=== PATIENT | female | born 1960 | race Caucasian/White ===

== ENCOUNTER 2017-12-07 07:57 | Outpatient (CLI) | payer OTHER | END 2017-12-07 07:58 | disposition home or self-care (01) | LOC: BICMAMMO 07:57 | PROVIDERS: ATTEND Family Medicine | DX: Z12.31 Encounter for screening mammogram for malignant neoplasm of breast (principal); R92.1 Mammographic calcification found on diagnostic imaging of breast; Z80.3 Family history of malignant neoplasm of breast; Z85.3 Personal history of malignant neoplasm of breast | CPT/HCPCS: 77063; 77067 ==

== ENCOUNTER 2018-07-14 08:55 | Outpatient (CLI) | payer OTHER ==
--- NOTE | 2018-07-14 09:56 | RAD ---
TWO VIEW CHEST: COMPARISON: 04/09/2004. INDICATION: Cough, short of breath. FINDINGS: The lungs are clear. Cardiomediastinal silhouette is of normal size. Metallic clips are seen at the left axilla. No significant interval change. IMPRESSION: Stable chest, without focal consolidation. POS: [facility]
== END 2018-07-14 08:56 | disposition home or self-care (01) ==
LOC: SCSRAD 08:55
PROVIDERS: ATTEND Family Medicine
DX: R05 Cough (principal)
CPT/HCPCS: 71046

== ENCOUNTER 2020-10-24 08:06 | Outpatient (CLI) | payer OTHER | END 2020-10-24 08:07 | disposition home or self-care (01) | LOC: BICMAMMO 08:06 | PROVIDERS: ATTEND Family Medicine | DX: Z12.31 Encounter for screening mammogram for malignant neoplasm of breast (principal); Z90.12 Acquired absence of left breast and nipple | CPT/HCPCS: 77063; 77067 ==

== ENCOUNTER 2021-11-09 13:00 | Outpatient (CLI) | payer OTHER | END 2021-11-09 13:01 | disposition home or self-care (01) | LOC: BICMAMMO 13:00 | PROVIDERS: ATTEND Family Medicine | DX: Z12.31 Encounter for screening mammogram for malignant neoplasm of breast (principal); Z85.3 Personal history of malignant neoplasm of breast; Z90.12 Acquired absence of left breast and nipple | CPT/HCPCS: 77063; 77067 ==